=== PATIENT | female | born 1990 | race Caucasian/White ===

== ENCOUNTER 2018-10-30 22:02 | Emergency (ER) | payer SELFPAY ==
[2018-10-30] MEDS ORDERED: DIPHENHYDRAMINE HCL 25 MG CAPSULE PO ONE (23:07)
[2018-10-30] MEDS ORDERED: PREDNISONE 20 MG TABLET PO ONE (23:07)
--- NOTE | 2018-10-30 23:13 | ER Document Report ---
ED General - General Chief Complaint: Rash Stated Complaint: RASH Time Seen by Provider: 10/30/18 22:59 Primary Care Provider: SILVANO COLE MD [ACTIVE STAFF] - Follow up in 3-5 days Notes: Patient is a 28-year-old female presents with complaint of a rash. Patient has a rash has been there for a few days a started after she was pulling weeds and was exposed to poison oak. Is on her face neck arms and legs. She says it itches is not pruritic. Her boyfriend got a similar rash as well after helping pull weeds as well. She has been using calamine lotion but says it is not helping. No fevers. No other complaints at this time. TRAVEL OUTSIDE OF THE [place] IN LAST 30 DAYS: No - Related Data Allergies/Adverse Reactions: amoxicillin [From Augmentin] Allergy (Verified 10/30/18 22:21) clavulanic acid [From Augmentin] Allergy (Verified 10/30/18 22:21) venlafaxine [From Effexor] Allergy (Verified 10/30/18 22:21) Past Medical History - Social History Smoking Status: Unknown if Ever Smoked Frequency of alcohol use: None Drug Abuse: None Family History: Reviewed & Not Pertinent - Immunizations Hx Diphtheria, Pertussis, Tetanus Vaccination: No Review of Systems - Review of Systems Notes: My Normal Review Basic REVIEW OF SYSTEMS: CONSTITUTIONAL : Denies fever, chills, or sweats. Denies recent illness. EENT: Denies eye, ear, throat, or mouth pain or symptoms. Denies nasal or sinus congestion. RESPIRATORY: Denies cough, cold, or chest congestion. Denies shortness of amaya ath, difficulty breathing, or wheezing. MUSCULOSKELETAL: Denies neck or back pain or joint pain or swelling. SKIN: Rash due to recent poison oak exposure. NEUROLOGICAL: Denies sensory or motor loss. ALL OTHER SYSTEMS REVIEWED AND NEGATIVE. Physical Exam - Vital signs Vitals: Temp Pulse Resp BP Pulse Ox 98.6 F 69 16 102/59 L 98 10/30/18 22:09 10/30/18 22:09 10/30/18 22:09 10/30/18 22:09 10/30/18 22:09 - Notes Notes: General Appearance: Well nourished, alert, cooperative, no acute distress, no obvious discomfort. Well-appearing. Vitals: reviewed, See vital signs table. Head: no swelling or tenderness to the head Eyes: PERRL, EOMI, Conjuctiva clear Mouth: No decreasd moisture Lungs: No wheezing, No rales, No rhonci, No accessory muscle use, good air exchange bilaterally. Extremities: strength 5/5 in all extremities, good pulses in all extremities Skin: Patient has pruritic rash over arms legs and face consistent with that of poison darius exposure. There is no areas that appear infected. No abnormal drainage. Neuro: speech clear, oriented x 3, normal affect, responds appropriately to questions. Course - Re-evaluation Re-evalutation: 10/30/18 23:12 Patient has rash and findings consistent with that of allergic reaction due to poison darius or poison oak. History also indicates that she had recent interaction with poison oak and developed a rash immediately afterwards. Patient has been scratching the rash but I do not see any evidence of infection secondary to the scratching on her physical exam. I feel patient safe to be discharged home. We will place her on tapering steroids. I encouraged her to take Benadryl every 6 hours for itching. I informed her that she can take Taisha or Zyrtec instead of Benadryl if she is concerned with the sedating nature of Benadryl. Patient encouraged to return to ER if she has any signs of infection, difficulty breathing or, wheezing, or if she feels unwell. Patient agrees with plan and will be discharged home. Dictation of this chart was performed using voice recognition software; therefore, there may be some unintended grammatical errors. - Vital Signs Vital signs: Temp Pulse Resp BP Pulse Ox 97.6 F 58 L 16 102/57 L 100 10/30/18 23:30 10/30/18 23:30 10/30/18 23:30 10/30/18 23:30 10/30/18 23:30 Discharge - Discharge Clinical Impression: Contact allergic reaction Condition: Good Disposition: HOME, SELF-CARE Additional Instructions: Treatment for a rash due to contact with poison darius or poison oak is to take a tapering course of steroids over the next 7 to 10 days. I have prescribed this for you. Take Benadryl 25 or 50 mg every 6 hours as needed for itching. Be aware that the Benadryl may make you sleepy. Do not drive if you are becoming sleepy from the Benadryl. Please try not to scratch the lesions as they sometimes can become infected. Signs of infection would be a large amount of swelling around the lesions with abnormal drainage, any fevers, or deep darkening redness around the rash. If you develop any of these symptoms you should return to the ER immediately. Please also return to the ER if you develop difficulty breathing, difficulty swallowing, wheezing, or feel like you are worsening. Prescriptions: RX: Prednisone [Deltasone 10 mg Tablet] 10 mg PO ASDIR PRN #36 tablet PRN Reason: Referrals: SILVANO COLE MD [ACTIVE STAFF] - Follow up in 3-5 days
[2018-10-31 01:20] VITALS: BP 102/57
== END 2018-10-30 23:30 | disposition home or self-care (01) ==
LOC: ER 22:02
DX: L23.7 Allergic contact dermatitis due to plants, except food (principal); Z88.0 Allergy status to penicillin
CPT/HCPCS: 99282; J7512

== ENCOUNTER 2019-01-03 19:14 | Emergency (ER) | payer MEDICAID ==
[2019-01-03] MEDS ORDERED: METOCLOPRAMIDE HCL 10 MG TABLET PO ONE (20:35)
--- NOTE | 2019-01-03 20:36 | ER Document Report ---
ED Medical Screen (RME) - General Chief Complaint: Nausea/Vomiting Stated Complaint: NAUSEA AND VOMITING Time Seen by Provider: 01/03/19 20:31 Mode of Arrival: Ambulatory Information source: Patient Notes: 28-year-old female presents to ED for complaint of nausea and vomiting with no pain for 2 weeks. She states when she does have nausea and vomiting her stomach just feels upset but not really pain. She states she has been fatigued with mood swings. She states her last menstrual period was November 15 could possibly be . She is a 1 para 0 she was unsuccessful the first 1. She states she does have a history of anxiety and depression but no surgeries. She does not smoke drink or drugs and lives with her mother. I have greeted and performed a rapid initial assessment of this patient. A comprehensive ED assessment and evaluation of the patient, analysis of test results and completion of medical decision making process will be conducted by an additional ED providers. TRAVEL OUTSIDE OF THE [place] IN LAST 30 DAYS: No - Related Data Allergies/Adverse Reactions: amoxicillin [From Augmentin] Allergy (Verified 10/30/18 22:21) clavulanic acid [From Augmentin] Allergy (Verified 10/30/18 22:21) venlafaxine [From Effexor] Allergy (Verified 10/30/18 22:21) Past Medical History - Social History Frequency of alcohol use: None Drug Abuse: None Renal/ Medical History: Denies: Hx Peritoneal Dialysis - Immunizations Hx Diphtheria, Pertussis, Tetanus Vaccination: No Physical Exam - Vital signs Vitals: Temp Pulse Resp BP Pulse Ox 99.0 F 99 18 128/60 H 92 01/03/19 19:20 01/03/19 19:20 01/03/19 19:20 01/03/19 19:20 01/03/19 19:20 Course - Vital Signs Vital signs: Temp Pulse Resp BP Pulse Ox 99.0 F 99 18 128/60 H 92 01/03/19 19:20 01/03/19 19:20 01/03/19 19:20 01/03/19 19:20 01/03/19 19:20
[2019-01-03 20:40] LABS: APPEARANCE,URINE CLEAR; BILIRUBIN,URINE NEGATIVE (NEGATIVE); COLOR,URINE YELLOW; GLUCOSE, URINE NEGATIVE (NEGATIVE); KETONES,URINE NEGATIVE (NEGATIVE); LEUKOCYTE ESTERASE,URINE NEGATIVE (NEGATIVE); NITRITE,URINE NEGATIVE (NEGATIVE); PROTEIN,URINE NEGATIVE (NEGATIVE); URINE SPECIFIC GRAVITY 1.023; UROBILINOGEN,URINE NEGATIVE mg/dL (<2.0)
[2019-01-03 21:11] LABS: ABSOLUTE BASOPHILS # (AUTO) 0.1 10^3/uL (0.0-0.2); ABSOLUTE EOSINOPHILS # (AUTO) 0.1 10^3/uL (0.0-0.6); ABSOLUTE LYMPHOCYTES (AUTO) 3.8 10^3/uL (0.5-4.7); ABSOLUTE MONOCYTES (AUTO) 0.8 10^3/uL (0.1-1.4); ABSOLUTE NEUT (AUTO) 8.3 10^3/uL (1.7-8.2); BASOPHILS % (AUTO) 0.5 % (0-2); EOSINOPHILS % (AUTO) 0.9 % (0-6); HEMATOCRIT 40.9 % (36.0-47.0); HEMOGLOBIN 13.8 g/dL (12.0-15.5); LYMPHOCYTES % (AUTO) 29.1 % (13-45); MEAN CORPUSCULAR HEMOGLOBIN 28.5 pg (27.0-33.4); MEAN CORPUSCULAR HGB CONC 33.8 g/dL (32.0-36.0); MEAN CORPUSCULAR VOLUME 84 fl (80-97); MONOCYTES % (AUTO) 5.7 % (3-13); PLATELET COUNT 248 10^3/uL (150-450); RED BLOOD COUNT 4.85 10^6/uL (3.72-5.28); RED CELL DISTRIBUTION WIDTH 13.1 % (11.5-14.0); SEGMENTED NEUTROPHILS % (AUTO) 63.8 % (42-78); TOTAL CELLS COUNTED % (AUTO) 100 %; WHITE BLOOD COUNT 13.1 10^3/uL (4.0-10.5)
[2019-01-04 01:03] VITALS: BP 123/58
[2019-01-04 01:28] LABS: ALBUMIN 4.1 g/dL (3.5-5.0); ALKALINE PHOSPHATASE 66 U/L (38-126); ANION GAP 10 (5-19); ASPARTATE AMINO TRANSFERASE 26 U/L (14-36); BILIRUBIN,DIRECT 0.3 mg/dL (0.0-0.4); BILIRUBIN,TOTAL 0.5 mg/dL (0.2-1.3); BLOOD UREA NITROGEN 17 mg/dL (7-20); CALCIUM 9.5 mg/dL (8.4-10.2); CARBON DIOXIDE 24 mmol/L (22-30); CHLORIDE 105 mmol/L (98-107); GLUCOSE 117 mg/dL (75-110); POTASSIUM 4.3 mmol/L (3.6-5.0); TOTAL PROTEIN 7.1 g/dL (6.3-8.2)
[2019-01-04] MEDS ORDERED: FAMOTIDINE 20 MG TABLET PO ONE (01:57)
[2019-01-04] MEDS ORDERED: ONDANSETRON ODT 4 MG TAB (6 TAB/ER DISP) PO PRN (01:57)
[2019-01-04] MEDS ORDERED: SUCRALFATE 1 GM TABLET PO ONE (01:57)
--- NOTE | 2019-01-04 02:07 | ER Document Report ---
ED GI/ - General Chief Complaint: Nausea/Vomiting Stated Complaint: NAUSEA AND VOMITING Time Seen by Provider: 01/03/19 20:31 Mode of Arrival: Ambulatory Notes: 28-year-old female presents to ED for complaint of nausea and vomiting with no pain for 2 weeks. She states when she does have nausea and vomiting her stomach just feels upset but not really pain. She states she has been fatigued with mood swings. She states her last menstrual period was November 15 could possibly be . She is a 1 para 0 she was unsuccessful the first 1. She states she does have a history of anxiety and depression but no surgeries. She does not smoke drink or drugs and lives with her mother. TRAVEL OUTSIDE OF THE [place] IN LAST 30 DAYS: No - Related Data Allergies/Adverse Reactions: amoxicillin [From Augmentin] Allergy (Verified 10/30/18 22:21) clavulanic acid [From Augmentin] Allergy (Verified 10/30/18 22:21) venlafaxine [From Effexor] Allergy (Verified 10/30/18 22:21) Past Medical History - General Information source: Patient - Social History Smoking Status: Never Smoker Frequency of alcohol use: None Drug Abuse: None Lives with: Family Family History: Reviewed & Not Pertinent Patient has suicidal ideation: No Patient has homicidal ideation: No Renal/ Medical History: Denies: Hx Peritoneal Dialysis - Immunizations Immunizations up to date: Yes Hx Diphtheria, Pertussis, Tetanus Vaccination: Yes Review of Systems - Review of Systems Constitutional: No symptoms reported EENT: No symptoms reported Cardiovascular: No symptoms reported Respiratory: No symptoms reported Gastrointestinal: See HPI Genitourinary: No symptoms reported Female Genitourinary: See HPI Musculoskeletal: No symptoms reported Skin: No symptoms reported Hematologic/Lymphatic: No symptoms reported Neurological/Psychological: No symptoms reported Physical Exam - Vital signs Vitals: Temp Pulse Resp BP Pulse Ox 99.0 F 99 18 128/60 H 92 01/03/19 19:20 01/03/19 19:20 01/03/19 19:20 01/03/19 19:20 01/03/19 19:20 - Notes Notes: GENERAL: Alert, interacts well. No acute distress. HEAD: Normocephalic, atraumatic. EYES: Pupils equal, round, and reactive to light. Extraocular movements intact. ENT: Oral mucosa moist, tongue midline. Oropharynx unremarkable. Airway patent. NECK: Full range of motion. Supple. Trachea midline. LUNGS: Clear to auscultation bilaterally, no wheezes, rales, or rhonchi. No respiratory distress. HEART: Regular rate and rhythm. No murmur ABDOMEN: Mild left upper quadrant and epigastric tenderness, right upper quadrant is benign. Lower abdomen is benign. No guarding or rigidity. Bowel sounds present in all 4 quadrants. GENITOURINARY: Deferred EXTREMITIES: Moves all 4 extremities spontaneously. No edema, normal radial and dorsalis pedis pulses bilaterally. No cyanosis. BACK: no cervical, thoracic, lumbar midline tenderness. No saddle anesthesia, normal distal neurovascular exam. Moves all extremities in full range of motion. NEUROLOGICAL: Alert and oriented x3. Normal speech. Cranial nerves II through XII grossly intact. PSYCH: Normal affect, normal mood. SKIN: Warm, dry, normal turgor. No rashes or lesions noted. Course - Re-evaluation Re-evalutation: Patient appeared surprised when I told her that her test was negative. She does have some intermittent upper abdominal pain, nausea, vomiting, pain is in the left upper quadrant on evaluation. Suspect this is gastritis. CBC, chemistry, lipase unremarkable, urinalysis nonspecific. I did offer IV fluids but this was declined. Discussed with patient in detail, patient states that she is tired all the time, however she states that she will follow-up with her primary care for additional evaluation including thyroid panel, H. pylori testing, etc. Discussed treatment of gastritis, follow-up, and return precautions. Patient and mother state understanding and agreement. Stable at time of discharge. - Vital Signs Vital signs: Temp Pulse Resp BP Pulse Ox 98.9 F 90 18 123/58 L 99 01/04/19 01:02 01/04/19 01:02 01/04/19 01:02 01/04/19 01:02 01/04/19 01:02 - Laboratory Result Diagrams: 01/03/19 20:41 01/04/19 00:58 Laboratory results interpreted by me: 01/03/19 01/03/19 01/04/19 20:16 20:41 00:58 WBC 13.1 H Absolute Neuts (auto) 8.3 H Glucose 117 H Urine Blood SMALL H Discharge - Discharge Clinical Impression: Abdominal pain Qualifiers: Abdominal location: generalized Qualified Code(s): R10.84 - Generalized abdominal pain Nausea and vomiting Qualifiers: Vomiting type: unspecified Vomiting Intractability: unspecified Qualified Code(s): R11.2 - Nausea with vomiting, unspecified Condition: Stable Disposition: HOME, SELF-CARE Additional Instructions: Your work-up and evaluation is most consistent with gastritis (inflammation of your upper gastrointestinal tract). Take Phenergan for nausea, take Carafate and Pepcid as prescribed to help treat this, you can take additional Rolaids, Tums, Maalox, etc. if needed. You can take Tylenol for pain. Avoid NSAIDs, alcohol, smoking, caffeine, spicy food. Start with clear fluids, progress to bland diet. Your patency test is negative. Follow-up with primary care for additional evaluation and treatment including possible H. pylori testing or even endoscopy. Return if you worsen including uncontrolled vomiting, vomiting blood, black stools, severe pain, fever of 100.4 or greater, or any other concerning or worsening symptoms. Prescriptions: Sucralfate [Carafate 1 gm Tablet] 1 gm PO QID #20 tablet Famotidine [Pepcid 20 mg Tablet] 20 mg PO BID #14 tablet Promethazine HCl [Phenergan 25 mg Tablet] 25 mg PO Q6H PRN #15 tablet PRN Reason:
== END 2019-01-04 02:21 | disposition home or self-care (01) ==
LOC: ER 19:14
DX: R11.2 Nausea with vomiting, unspecified (principal); R53.83 Other fatigue; R10.84 Generalized abdominal pain; R10.812 Left upper quadrant abdominal tenderness; R10.816 Epigastric abdominal tenderness; R45.89 Other symptoms and signs involving emotional state; Z32.02 Encounter for pregnancy test, result negative; Z88.0 Allergy status to penicillin; Z88.8 Allergy status to other drugs, medicaments and biological substances
CPT/HCPCS: 36415; 84702; 85025; 81025; 80053; 81001; J3490 ×3; 99283

== ENCOUNTER 2019-01-13 23:05 | Emergency (ER) | payer MEDICAID ==
--- NOTE | 2019-01-13 23:38 | ER Document Report ---
ED GI/ - General Chief Complaint: Urinary Problem Stated Complaint: PAINFUL URINATION Time Seen by Provider: 01/13/19 23:38 Primary Care Provider: SILVANO COLE MD [Primary Care Provider] - Follow up as needed Mode of Arrival: Ambulatory Information source: Patient Notes: HISTORY OF PRESENT ILLNESS: Patient is a 28-year-old female with no significant past medical history who presents with hematuria and dysuria for the past 3 days. Patient reports that she has burning in cramping in the lower abdomen, had one previous episode that was similar "years ago" but this is worse. She denies nausea or vomiting, no fevers or chills. Location: Suprapubic Onset: 3 days ago Alleviation: None Provocation: Unknown Quality: Burning Radiation: None Severity: Mild to moderate Timing: Intermittent History of abdominal surgery: None Associated symptoms: No fevers or chills, no vaginal bleeding or discharge Last bowel movement: Today and normal Last menstrual period: "2 months ago I think" REVIEW OF SYSTEMS: CONSTITUTIONAL : Denies fever or chills, no sweats. Denies recent illness. EENT: Denies eye, ear, throat, or mouth pain or symptoms. Denies nasal or sinus congestion. CARDIOVASCULAR: Denies chest pain. Denies swelling of the legs. RESPIRATORY: Denies cough, cold, or chest congestion. Denies shortness of breath or difficulty breathing. Denies wheezing. GASTROINTESTINAL: Positive for abdominal pain. Denies nausea, vomiting, or diarrhea. Denies constipation. GENITOURINARY: Positive for dysuria with increased frequency and burning. FEMALE GENITOURINARY: Denies vaginal bleeding, abnormal or irregular periods. MUSCULOSKELETAL: Denies neck or back pain or joint pain or swelling. SKIN: Denies rash or skin lesions. HEMATOLOGIC : Denies easy bruising or bleeding. LYMPHATIC: Denies swollen, enlarged glands. NEUROLOGICAL: Denies altered mental status or loss of consciousness. Denies headache. Denies weakness or paralysis or loss of use of either side. Denies problems with gait or speech. Denies sensory or motor loss. PSYCHIATRIC: Denies anxiety or stress or depression. All other systems reviewed and negative. PHYSICAL EXAMINATION: GENERAL: Well-appearing, well-nourished and in no acute distress. HEAD: Atraumatic, normocephalic. No scalp deformity, depression, or crepitance. EYES: Pupils are 3 mm and equal/round/reactive to light, extraocular movements intact, sclera anicteric, conjunctiva are normal. ENT: Nares patent bilaterally, oropharynx. Moist mucous membranes. No tonsil hypertrophy. NECK: Normal range of motion, supple without lymphadenopathy. LUNGS: Breath sounds present, equal, and clear to auscultation bilaterally. No wheezes, rales, or rhonchi. HEART: Regular rate and rhythm without murmurs, rubs, or gallops. 2+ peripheral pulses. Normal capillary refill. ABDOMEN: Soft and nondistended, mild suprapubic tenderness. Normoactive bowel sounds. No guarding, no rebound. No masses appreciated. BACK: Normal contour, no midline tenderness. Rectal exam deferred. GENITAL/PELVIC: Deferred. EXTREMITIES: Normal range of motion, no pitting or edema. No cyanosis. NEUROLOGICAL: No focal neurological deficits. Moves all extremities spontaneously and on command. PSYCH: Normal mood, normal affect. No suicidal thoughts/ideations. No homicidal thoughts/ideations. No hallucinations. SKIN: Warm, dry, normal turgor, no rashes or lesions noted. ASSESSMENT AND PLAN: This patient is a 28-year-old female who presents with hematuria and dysuria concerning for likely acute urinary tract infection. 1. Will obtain urine. 2. Will discharge if negative. TRAVEL OUTSIDE OF THE [place] IN LAST 30 DAYS: No - HPI Patient complains to provider of: Dysuria Onset: Other - 3 days ago Timing/Duration: Gradual Quality of pain: Burning Severity at maximum: Mild Severity in ED: Mild Pain Level: 1 Location: Suprapubic Vaginal bleeding (Compared to normal period): None Menstrual period history: Irregular Sexual history: Active Associated symptoms: Hematuria, Urinary frequency, Urinary urgency Exacerbated by: Denies Relieved by: Denies Similar symptoms previously: No Recently seen / treated by doctor: No - Related Data Allergies/Adverse Reactions: amoxicillin [From Augmentin] Allergy (Verified 01/13/19 23:14) clavulanic acid [From Augmentin] Allergy (Verified 01/13/19 23:14) venlafaxine [From Effexor] Allergy (Verified 01/13/19 23:14) Past Medical History - General Information source: Patient - Social History Smoking Status: Never Smoker Frequency of alcohol use: None Drug Abuse: None Lives with: Family Family History: Reviewed & Not Pertinent Patient has suicidal ideation: No Patient has homicidal ideation: No - Past Medical History Cardiac Medical History: Reports: None Pulmonary Medical History: Reports: None EENT Medical History: Reports: None Neurological Medical History: Reports: None Endocrine Medical History: Reports: None Renal/ Medical History: Reports: None. Denies: Hx Peritoneal Dialysis Malignancy Medical History: Reports: None GI Medical History: Reports: None Musculoskeletal Medical History: Reports None Skin Medical History: Reports None Psychiatric Medical History: Reports: None Traumatic Medical History: Reports: None Infectious Medical History: Reports: None Surgical Hx: Negative Past Surgical History: Reports: None - Immunizations Immunizations up to date: Yes Hx Diphtheria, Pertussis, Tetanus Vaccination: Yes Review of Systems - Review of Systems Constitutional: No symptoms reported EENT: No symptoms reported Cardiovascular: No symptoms reported Respiratory: No symptoms reported Gastrointestinal: No symptoms reported Genitourinary: See HPI, Dysuria, Urgency Female Genitourinary: No symptoms reported Musculoskeletal: No symptoms reported Skin: No symptoms reported Hematologic/Lymphatic: No symptoms reported Neurological/Psychological: No symptoms reported -: Yes All other systems reviewed and negative Physical Exam - Vital signs Vitals: Temp Pulse Resp BP Pulse Ox 98.4 F 71 20 107/50 L 99 01/14/19 00:18 01/14/19 00:18 01/14/19 00:18 01/14/19 00:18 01/14/19 00:18 Interpretation: Normal Course - Re-evaluation Re-evalutation: 01/14/19 01:09 Urine is positive for likely urinary tract infection. Patient will begin oral Bactrim and will be discharged. Will discharge the patient home with strict return precautions and follow-up with primary care. All results were explained to and discussed with the patient, and all questions addressed and answered for the patient. The patient voices both understanding and agreeing with the plan. - Vital Signs Vital signs: Temp Pulse Resp BP Pulse Ox 98.4 F 71 20 107/50 L 99 01/14/19 00:18 01/14/19 00:18 01/14/19 00:18 01/14/19 00:18 01/14/19 00:18 - Laboratory Laboratory results interpreted by me: 01/13/19 23:30 Urine Protein >=500 H Urine Ketones TRACE H Urine Blood LARGE H Urine Urobilinogen 2.0 H Ur Leukocyte Esterase LARGE H Urine Ascorbic Acid 40 H Discharge - Discharge Clinical Impression: Urinary tract infection Qualifiers: Urinary tract infection type: acute cystitis Hematuria presence: with hematuria Qualified Code(s): N30.01 - Acute cystitis with hematuria Condition: Good Disposition: HOME, SELF-CARE Instructions: Urinary Tract Infection ([facility]), Trimethoprim-Sulfa ([facility]) Additional Instructions: You have been evaluated in the Emergency Department for a urinary tract infection. While here, you were given antibiotics and it is now safe to be discharged home. Please follow-up with your primary physician as instructed in one week to be rechecked. Return to the Emergency Department if you experience worsening burning, worsening pain, high fevers, or any other concerning s ymptoms. Prescriptions: Sulfamethoxazole/Trimethoprim [Bactrim Ds Tablet] 1 each PO BID #20 tablet Phenazopyridine HCl [Pyridium 200 mg Tablet] 200 mg PO TID #15 tablet Referrals: SILVANO COLE MD [Primary Care Provider] - Follow up as needed Print Language: Kinyarwanda
[2019-01-13 23:56] LABS: APPEARANCE,URINE CLOUDY; BILIRUBIN,URINE NEGATIVE (NEGATIVE); COLOR,URINE AMBER; GLUCOSE, URINE NEGATIVE (NEGATIVE); KETONES,URINE TRACE mg/dL (NEGATIVE); LEUKOCYTE ESTERASE,URINE LARGE (NEGATIVE); NITRITE,URINE NEGATIVE (NEGATIVE); PROTEIN,URINE >=500 mg/dL (NEGATIVE); URINE SPECIFIC GRAVITY 1.035
[2019-01-14] MEDS ORDERED: PHENAZOPYRIDINE HCL 200 MG TABLET PO ONE (01:04)
[2019-01-14] MEDS ORDERED: SULFAMETHOXAZOLE/TRIMETHOPRIM 800-160 MG TABLET PO ONE (01:04)
[2019-01-14 01:28] VITALS: BP 100/55
== END 2019-01-14 01:31 | disposition home or self-care (01) ==
LOC: ER 23:05
DX: N30.01 Acute cystitis with hematuria (principal); R30.0 Dysuria; R10.30 Lower abdominal pain, unspecified; R35.0 Frequency of micturition; R39.15 Urgency of urination; Z88.0 Allergy status to penicillin; Z88.8 Allergy status to other drugs, medicaments and biological substances
CPT/HCPCS: 81025; 81001; J3490 ×2; 99283

== ENCOUNTER 2019-04-11 08:41 | Emergency (ER) | payer MEDICAID ==
[2019-04-11] MEDS ORDERED: ONDANSETRON 4 MG TAB.RAPDIS PO ONE (10:20)
[2019-04-11] MEDS ORDERED: IBUPROFEN 800 MG TABLET PO ONE (10:20)
--- NOTE | 2019-04-11 10:22 | ER Document Report ---
HPI - HPI Patient complains to provider of: Body aches Time Seen by Provider: 04/11/19 10:16 Onset: Yesterday Quality of pain: Achy Pain Level: 1 Context: Is 28-year-old female [employer] presents today with complaints of nausea body aches headache and sore throat that started yesterday. Denies vomiting reports some diarrhea yesterday none today. Associated Symptoms: Body/muscle aches, Headache Exacerbated by: Denies Relieved by: Denies Similar symptoms previously: No Recently seen / treated by doctor: No - REPRODUCTIVE Reproductive: DENIES: : Past Medical History - General Information source: Patient Last Menstrual Period: Current - Social History Smoking Status: Never Smoker Chew tobacco use (# tins/day): No Frequency of alcohol use: None Drug Abuse: None Occupation: [employer] Lives with: Family Family History: Reviewed & Not Pertinent Patient has suicidal ideation: No Patient has homicidal ideation: No - Medical History Medical History: Negative Renal/ Medical History: Denies: Hx Peritoneal Dialysis Surgical Hx: Negative - Immunizations Immunizations up to date: Yes Hx Diphtheria, Pertussis, Tetanus Vaccination: Yes Vertical Provider Document - CONSTITUTIONAL Agree With Documented VS: Yes Exam Limitations: No Limitations General Appearance: WD/WN, No Apparent Distress - Nontoxic looking - INFECTION CONTROL TRAVEL OUTSIDE OF THE [place] IN LAST 30 DAYS: No - HEENT HEENT: Atraumatic, Normal ENT Exam, Normocephalic. negative: Conjuctival Injection, Pharyngeal Exudate, Pharyngeal Erythema - Good airway clear voice, Tympanic Membrane Red - NECK Neck: Normal Inspection, Supple. negative: Lymphadenopathy-Left, Lymphadenopathy-Right - RESPIRATORY Respiratory: Breath Sounds Normal, No Respiratory Distress. negative: Rhonchi, Wheezing - CARDIOVASCULAR Cardiovascular: Regular Rate, Regular Rhythm - GI/ABDOMEN Gastrointestinal: Abdomen Soft, Abdomen Non-Tender - BACK Back: negative: CVA Tenderness-Right, CVA Tenderness-Left - MUSCULOSKELETAL/EXTREMETIES Musculoskeletal/Extremeties: MAEW, FROM, Non-Tender - NEURO Level of Consciousness: Awake, Alert, Appropriate Motor/Sensory: No Motor Deficit - DERM Integumentary: Warm, Dry Course - Re-evaluation Re-evalutation: 04/11/19 10:49 28-year-old female with no prior history presents to emergency department with possible flu symptoms. Reports nausea with headache body aches. No flu shot this year. 04/11/19 11:14 Influenza and strep negative. Patient was instructed on Zofran for the next 24 hours push fluids take Motrin for the headache return for concerns. She verbalized understanding to all instructions. Dictation of this chart was performed using voice recognition software; therefore, there may be some unintended grammatical errors. - Vital Signs Vital signs: Temp Pulse Resp BP Pulse Ox 98.7 F 103 H 16 116/54 L 98 04/11/19 08:51 04/11/19 08:51 04/11/19 08:51 04/11/19 08:51 04/11/19 08:51 Discharge - Discharge Clinical Impression: Flu-like symptoms, Nausea Headache Qualifiers: Headache type: unspecified Headache chronicity pattern: unspecified pattern Intractability: not intractable Qualified Code(s): R51 - Headache Condition: Stable Disposition: HOME, SELF-CARE Instructions: Antinausea Medication ([facility]), Headache ([facility]) Additional Instructions: *You have been evaluated for flulike symptoms, headache, nausea *Increase fluid intake as discussed, good handwashing *Take medication as prescribed *Monitor your temperature, take Tylenol as indicated *Follow up with a primary care provider in 1 week for recheck *Return to ED for worsening condition, changes, needs Referrals: SILVANO COLE MD [Primary Care Provider] - Follow up in 1 week
[2019-04-11 10:51] LABS: A TYPE INFLUENZA AG NEGATIVE (NEGATIVE); B INFLUENZA AG NEGATIVE (NEGATIVE)
[2019-04-11] MEDS ORDERED: ONDANSETRON ODT 4 MG TAB (6 TAB/ER DISP) PO PRN (11:02)
[2019-04-11 11:25] VITALS: BP 95/68
== END 2019-04-11 11:26 | disposition home or self-care (01) ==
LOC: ER 08:41
DX: R51 Headache (principal); J02.9 Acute pharyngitis, unspecified; M79.10 Myalgia, unspecified site; R11.0 Nausea
CPT/HCPCS: 99283; 87070; 87880; 87804; J3490; S0119